=== PATIENT | female | born 1940 | race Caucasian/White ===

== ENCOUNTER 2017-07-24 15:59 | Emergency (ER) | payer MEDICARE ==
[~2017-07-24] VITALS: Ht 149.9 cm; Wt 66.4 kg
[2017-07-24] MEDS ORDERED: ONDANSETRON 2MG/ML, 2ML ONE (16:40)
[2017-07-24] MEDS ORDERED: MORPHINE SULFATE 4 MG/ML, 1ML ONE (16:40)
[2017-07-24] MEDS ORDERED: CEFAZOLIN PMX 1GM/50ML 50 ML ONE (16:47)
[2017-07-24 16:49] LABS: BASOPHILS # (AUTO) 0.04 x10^3/uL (0-0.1); BASOPHILS % (AUTO) 1 % (0-1); EOSINOPHILS # (AUTO) 0.08 x10^3/uL (0-0.4); EOSINOPHILS % (AUTO) 1 % (1-7); HCT (SEDRATE) 39.4 % (34.6-47.8); LYMPHOCYTES # (AUTO) 1.87 x10^3/uL (1-3.4); LYMPHOCYTES % (AUTO) 29 % (22-44); MD NO; MEAN CORPUSCULAR HEMOGLOBIN 23.7 pg (27.0-34.8); MEAN CORPUSCULAR HGB CONC 32.1 g/dL (32.4-35.8); MEAN CORPUSCULAR VOLUME 73.6 fL (80-100); MEAN PLATELET VOLUME 8.8 fL (7.4-10.4); MONOCYTES # (AUTO) 0.51 x10^3/uL (0.2-0.8); MONOCYTES % (AUTO) 8 % (2-9); NEUTROPHILS # (AUTO) 3.87 x10^3/uL (1.8-6.8); NEUTROPHILS % (AUTO) 61 % (42-75); PLATELET COUNT 310 x10^3/uL (130-400); RED BLOOD COUNT 5.36 x10^6/uL (3.82-5.3); RED CELL DISTRIBUTION WIDTH 16.8 % (9.6-15.2)
[2017-07-24 17:00] LABS: ALBUMIN 3.7 g/dL (3.4-5.0); ANION GAP 8 mmol/L (5-15); C-REACTIVE PROTEIN, QUANT 0.15 mg/dL (0.02-0.49); CALCIUM 8.3 mg/dL (8.5-10.1); CHLORIDE 109 mmol/L (98-107); CREATININE 0.64 mg/dL (0.55-1.02)
[2017-07-24] MEDS ORDERED: SODIUM CHLORIDE FLUSH 10ML SYR IVF ONE (17:00)
[2017-07-24] MEDS ORDERED: MORPHINE SULFATE 4 MG/ML, 1ML IVPush PRN (17:00)
[2017-07-24] MEDS ORDERED: CEFAZOLIN PMX 1GM/50ML 50 ML IV ONE (17:00)
[2017-07-24] MEDS ORDERED: ONDANSETRON 2MG/ML, 2ML IVPush ONE (17:00)
[2017-07-24] MEDS ORDERED: PLEASE ENTER ALLERGIES MC SCH (17:00)
[2017-07-24 17:30] LABS: SEDIMENTATION RATE 19 mm/hr (0-20)
[2017-07-24 18:20] VITALS: BP 140/67
== END 2017-07-24 19:02 | disposition home or self-care (01) ==
LOC: ED 18:50
DX: L98.491 Non-pressure chronic ulcer of skin of other sites limited to breakdown of skin (principal); L98.492 Non-pressure chronic ulcer of skin of other sites with fat layer exposed
CPT/HCPCS: 36415; 73130; 80048; 82040; 85025; 85651; 86140; 96365; 96375; 99285; J0690; J2405

== ENCOUNTER → 2017-08-02 | Outpatient (CLI) | payer MEDICAID, MEDICARE | END | disposition home or self-care (01) | LOC: WOUND 13:27 | PROVIDERS: ATTEND Internal Medicine | DX: S61.401A Unspecified open wound of right hand, initial encounter (principal); X58.XXXA Exposure to other specified factors, initial encounter; Y93.89 Activity, other specified; Y92.89 Other specified places as the place of occurrence of the external cause; Y99.8 Other external cause status | CPT/HCPCS: 97597; G0463; WOU0463 ==

== ENCOUNTER → 2017-08-09 | Outpatient (CLI) | payer MEDICARE | END | disposition home or self-care (01) | LOC: WOUND 11:00 | PROVIDERS: ATTEND Internal Medicine | DX: S61.401D Unspecified open wound of right hand, subsequent encounter (principal); X58.XXXD Exposure to other specified factors, subsequent encounter | CPT/HCPCS: 97597 ==

== ENCOUNTER → 2017-08-16 | Outpatient (CLI) | payer MEDICARE | END | disposition home or self-care (01) | LOC: WOUND 11:12 | PROVIDERS: ATTEND Internal Medicine | DX: S61.401D Unspecified open wound of right hand, subsequent encounter (principal); X58.XXXD Exposure to other specified factors, subsequent encounter | CPT/HCPCS: 11100 ==

== ENCOUNTER → 2017-08-23 | Outpatient (CLI) | payer MEDICARE | END | disposition home or self-care (01) | LOC: WOUND 11:30 | PROVIDERS: ATTEND Internal Medicine | DX: S61.401D Unspecified open wound of right hand, subsequent encounter (principal); X58.XXXD Exposure to other specified factors, subsequent encounter | CPT/HCPCS: G0463; WOU0463 ==

== ENCOUNTER 2019-03-07 11:02 | Inpatient (IN) | payer MEDICARE ==
[~2019-03-07] VITALS: Ht 152.4 cm; Wt 60.6 kg
--- NOTE | 2019-03-07 11:38 | NUR ---
PT TO ED WITH FAMILY MEMBER FOR OPEN ABSCESS ON PALMAR RIGHT HAND/WRIST WITH FEVER UP TO 102F LAST NIGHT. PT HAS BEEN TAKIN GADVIL FOR PAIN AND FEVER. PT HAS HX OF CANCER AND SURGICAL REMOVAL OF 3 FINGERS. PT STATES WOUND HAS BEEN OPEN FOR 6MONTHS, SINCE LAST SURGERY. PT CONNECTED TO MONITORS. VSS. PT RESTING IN ROOM WITH FAMILY AT BS. NO NEEDS EXPRESSED. CALL LIGHT WITHIN REACH. AWAITING EDMD ASSESSMENT.
[2019-03-07] MEDS ORDERED: MORPHINE SULFATE 4 MG/ML, 1ML IVPush PRN ×2 (12:00→15:30)
[2019-03-07] MEDS ORDERED: ONDANSETRON 2MG/ML, 2ML IVPush ONE (12:00)
[2019-03-07] MEDS ORDERED: SODIUM CHLORIDE FLUSH 10ML SYR IVF ONE (12:00)
[2019-03-07] MEDS ORDERED: MORPHINE SULFATE 4 MG/ML, 1ML ONE (12:12)
[2019-03-07] MEDS ORDERED: ONDANSETRON 2MG/ML, 2ML ONE (12:12)
--- NOTE | 2019-03-07 12:23 | NUR ---
pt resting in room. vss. iv established and labs drawn. pt medicated per sep. xr complete. awaiting resutls.
[2019-03-07 12:30] LABS: ALBUMIN 3.5 g/dL (3.4-5.0); ANION GAP 9 mmol/L (5-15); CALCIUM 8.7 mg/dL (8.5-10.1); CHLORIDE 111 mmol/L (98-107)
[2019-03-07 12:31] LABS: CREATININE 0.88 mg/dL (0.55-1.02)
[2019-03-07 12:34] LABS: MEAN CORPUSCULAR HGB CONC 30.4 g/dL (32.4-35.8); MEAN CORPUSCULAR VOLUME 59.2 fL (80-100); MEAN PLATELET VOLUME 7.9 fL (7.4-10.4); PLATELET COUNT 353 x10^3/uL (130-400)
[2019-03-07 12:45] LABS: MD YES
[2019-03-07 12:47] LABS: ANISOCYTOSIS 2+; EOS% (MANUAL) 4 % (1-7); LYMPH#(MANUAL) 0.71 x10^3/uL (1-3.4); LYMPHS% (MANUAL) 14 % (22-44); MICROCYTOSIS 2+; MONOS% (MANUAL) 4 % (2-9); SEG#(MANUAL) 3.98 x10^3/uL (1.8-6.8); SEGS% (MANUAL) 78 % (42-75)
[2019-03-07 12:48] LABS: HYPOCHROMIA 1+; TARGET CELLS 1+
[2019-03-07 12:49] LABS: <PLATELET ESTIMATE> ADEQUATE; <PLT MORPHOLOGY> NORMAL PLT MORPH; OVALOCYTES 1+; STOMATOCYTES 1+; TEAR DROPS 1+
[2019-03-07 13:40] LABS: HCT (SEDRATE) 29.6 % (34.6-47.8)
--- NOTE | 2019-03-07 13:54 | NUR ---
pt resting in room. vss. awaiting further orders.
[2019-03-07] MEDS ORDERED: CLINDAMYCIN PMX 300MG/50ML 50 ML IV ONE (14:30)
--- NOTE | 2019-03-07 14:59 | NUR ---
pt resting in room with lights dimmed adn family at bs. vss. pt medicated per sep. hospitalist to bs. awaiting room assignment.
[2019-03-07 15:18] LABS: C-REACTIVE PROTEIN, QUANT 0.13 mg/dL (0.02-0.49)
[2019-03-07] MEDS ORDERED: ONDANSETRON 2MG/ML, 2ML IVPush PRN (15:30)
--- NOTE | 2019-03-07 15:34 | NUR ---
Flo domínguez in [facility] - 03/07/19 at 1534 by DWIGHT BREAK RN: PT RESTING ON GURNEY. COL[place]
[2019-03-07] MEDS: SODIUM CHLORIDE 0.9% 1,000 ML IV SCH (17:52)
[2019-03-07] MEDS: ENOXAPARIN 40 MG/0.4 ML SQ SCH (17:52)
[2019-03-07] MEDS: OXYcodone IR 5MG TABLET PO PRN ×2 (17:53→21:55)
[2019-03-07] MEDS: METRONIDAZOLE PMX 500MG/100ML 100 ML IV SCH ×2 (18:28→23:56)
[2019-03-07 18:53] VITALS: BP 144/84
[2019-03-07] MEDS: CEFTAROLINE 600 MG in SODIUM CHLORIDE 0.9% 100 ML IV SCH (19:41)
[2019-03-08 00:13] VITALS: BP 160/79
[2019-03-08] MEDS: METRONIDAZOLE PMX 500MG/100ML 100 ML IV SCH ×4 (05:45→23:51)
[2019-03-08 06:09] LABS: ALBUMIN 2.9 g/dL (3.4-5.0); ANION GAP 9 mmol/L (5-15); CALCIUM 7.7 mg/dL (8.5-10.1); CHLORIDE 113 mmol/L (98-107)
[2019-03-08 06:20] LABS: ALANINE AMINOTRANSFERASE 19 U/L (12-78); ALKALINE PHOSPHATASE 103 U/L (45-117); BILIRUBIN,TOTAL 0.6 mg/dL (0.2-1.0); CREATININE 0.59 mg/dL (0.55-1.02); TOTAL PROTEIN 6.1 g/dL (6.4-8.2)
[2019-03-08 06:39] VITALS: BP 135/67
[2019-03-08 06:42] LABS: MEAN CORPUSCULAR HEMOGLOBIN 18.4 pg (27.0-34.8); MEAN CORPUSCULAR HGB CONC 30.7 g/dL (32.4-35.8); MEAN CORPUSCULAR VOLUME 59.9 fL (80-100); MEAN PLATELET VOLUME 8.4 fL (7.4-10.4); PLATELET COUNT 315 x10^3/uL (130-400); RED BLOOD COUNT 4.33 x10^6/uL (3.82-5.3); RED CELL DISTRIBUTION WIDTH 20.1 % (9.6-15.2)
[2019-03-08 07:30] LABS: BASOPHILS # (AUTO) 0.02 x10^3/uL (0-0.1); BASOPHILS % (AUTO) 1 % (0-1); EOSINOPHILS # (AUTO) 0.09 x10^3/uL (0-0.4); EOSINOPHILS % (AUTO) 2 % (1-7); LYMPHOCYTES # (AUTO) 1.14 x10^3/uL (1-3.4); LYMPHOCYTES % (AUTO) 30 % (22-44); MD SCAN; MONOCYTES # (AUTO) 0.27 x10^3/uL (0.2-0.8); MONOCYTES % (AUTO) 7 % (2-9); NEUTROPHILS # (AUTO) 2.27 x10^3/uL (1.8-6.8); NEUTROPHILS % (AUTO) 60 % (42-75)
[2019-03-08] MEDS: CEFTAROLINE 600 MG in SODIUM CHLORIDE 0.9% 100 ML IV SCH (07:41)
[2019-03-08] MEDS: OXYcodone IR 5MG TABLET PO PRN ×3 (09:08→18:11)
[2019-03-08] MEDS: IRON SUCROSE COMPLEX 100MG/5ML IV SCH (10:38)
[2019-03-08 12:27] VITALS: BP_SYST 131; BP_SYST 170; BP_DIAS 74; BP_DIAS 89
[2019-03-08] MEDS: SODIUM CHLORIDE 0.9% 1,000 ML IV SCH (14:18)
[2019-03-08] MEDS: ENOXAPARIN 40 MG/0.4 ML SQ SCH (18:11)
[2019-03-08 19:27] VITALS: BP 161/68
[2019-03-08] MEDS: CEFTAROLINE 400 MG in SODIUM CHLORIDE 0.9% 100 ML IV SCH (20:02)
[2019-03-09 00:58] VITALS: BP 167/90
[2019-03-09] MEDS: OXYcodone IR 5MG TABLET PO PRN ×2 (02:17→18:02)
[2019-03-09 05:48] LABS: MEAN CORPUSCULAR HEMOGLOBIN 18.3 pg (27.0-34.8); MEAN CORPUSCULAR HGB CONC 30.1 g/dL (32.4-35.8); MEAN CORPUSCULAR VOLUME 60.8 fL (80-100); MEAN PLATELET VOLUME 8.2 fL (7.4-10.4); PLATELET COUNT 305 x10^3/uL (130-400); RED BLOOD COUNT 4.24 x10^6/uL (3.82-5.3); RED CELL DISTRIBUTION WIDTH 20.1 % (9.6-15.2)
[2019-03-09 06:00] LABS: BASOPHILS # (AUTO) 0.02 x10^3/uL (0-0.1); BASOPHILS % (AUTO) 1 % (0-1); EOSINOPHILS # (AUTO) 0.06 x10^3/uL (0-0.4); EOSINOPHILS % (AUTO) 2 % (1-7); LYMPHOCYTES # (AUTO) 0.88 x10^3/uL (1-3.4); LYMPHOCYTES % (AUTO) 22 % (22-44); MD SCAN; MONOCYTES # (AUTO) 0.27 x10^3/uL (0.2-0.8); MONOCYTES % (AUTO) 7 % (2-9); NEUTROPHILS # (AUTO) 2.72 x10^3/uL (1.8-6.8); NEUTROPHILS % (AUTO) 69 % (42-75)
[2019-03-09] MEDS: METRONIDAZOLE PMX 500MG/100ML 100 ML IV SCH ×3 (06:09→18:02)
[2019-03-09 06:28] VITALS: BP 127/90
[2019-03-09 06:58] VITALS: BP 165/79
[2019-03-09] MEDS: CEFTAROLINE 400 MG in SODIUM CHLORIDE 0.9% 100 ML IV SCH ×2 (08:15→20:16)
[2019-03-09] MEDS: IRON SUCROSE COMPLEX 100MG/5ML IV SCH (08:15)
[2019-03-09] MEDS: SODIUM CHLORIDE 0.9% 1,000 ML IV SCH (10:04)
[2019-03-09] MEDS: ONDANSETRON ODT 4 MG PO PRN (12:00)
[2019-03-09 12:49] VITALS: BP 131/73
[2019-03-09 15:47] LABS: OCCULT BLOOD NEGATIVE (NEGATIVE)
[2019-03-09] MEDS ORDERED: MORPHINE SULFATE 4 MG/ML, 1ML IVPush ONE (16:00)
[2019-03-09] MEDS ORDERED: GADOBUTROL 10 MMOL/10 ML VIAL ONE (16:29)
[2019-03-09] MEDS: ACETAMINOPHEN 325 MG TABLET PO PRN (18:01)
[2019-03-09] MEDS: ENOXAPARIN 40 MG/0.4 ML SQ SCH (18:02)
[2019-03-09] MEDS: DOCUSATE 100 MG CAPSULE PO SCH (20:17)
[2019-03-09] MEDS: POLYETHYLENE GLYCOL 17 GM PACKET PO PRN (20:17)
[2019-03-09 20:18] VITALS: BP 151/73
[2019-03-10] MEDS: METRONIDAZOLE PMX 500MG/100ML 100 ML IV SCH ×2 (00:07→05:31)
[2019-03-10 01:23] VITALS: BP 149/64
[2019-03-10] MEDS: SODIUM CHLORIDE 0.9% 1,000 ML IV SCH ×2 (02:08→13:53)
[2019-03-10 06:34] VITALS: BP 155/78
[2019-03-10] MEDS: IRON SUCROSE COMPLEX 100MG/5ML IV SCH (08:00)
[2019-03-10] MEDS: ACETAMINOPHEN 325 MG TABLET PO PRN ×3 (08:02→20:18)
[2019-03-10] MEDS: CEFTAROLINE 400 MG in SODIUM CHLORIDE 0.9% 100 ML IV SCH ×2 (08:02→20:13)
[2019-03-10] MEDS: ENOXAPARIN 40 MG/0.4 ML SQ SCH (08:03)
[2019-03-10] MEDS: ONDANSETRON ODT 4 MG PO PRN (08:03)
[2019-03-10] MEDS: OXYcodone IR 5MG TABLET PO PRN ×3 (08:03→20:19)
[2019-03-10] MEDS: DOCUSATE 100 MG CAPSULE PO SCH ×2 (08:03→20:13)
[2019-03-10 12:49] VITALS: BP 172/78
[2019-03-10] MEDS ORDERED: GADOTERATE 7.5 MMOL/15 ML SYR ONE (16:52)
[2019-03-10 18:43] VITALS: BP 135/71
[2019-03-11 00:43] VITALS: BP 147/71
[2019-03-11] MEDS: SODIUM CHLORIDE 0.9% 1,000 ML IV SCH ×2 (02:37→15:50)
[2019-03-11 05:14] LABS: ANION GAP 5 mmol/L (5-15); CHLORIDE 110 mmol/L (98-107)
[2019-03-11 05:23] LABS: MEAN CORPUSCULAR HEMOGLOBIN 18.7 pg (27.0-34.8); MEAN CORPUSCULAR VOLUME 62.3 fL (80-100); MEAN PLATELET VOLUME 9.5 fL (7.4-10.4); PLATELET COUNT 351 x10^3/uL (130-400); RED BLOOD COUNT 4.26 x10^6/uL (3.82-5.3); RED CELL DISTRIBUTION WIDTH 21.4 % (9.6-15.2)
[2019-03-11 05:48] LABS: MD YES
[2019-03-11 05:51] LABS: ANISOCYTOSIS 2+; BAND#(MANUAL) 0.05 x10^3/uL; BANDS%(MANUAL) 1 % (0-7); HYPOCHROMIA 1+; LYMPH#(MANUAL) 1.28 x10^3/uL (1-3.4); LYMPHS% (MANUAL) 25 % (22-44); MICROCYTOSIS 2+; MONOS#(MANUAL) 0.36 x10^3/uL (0.3-2.7); MONOS% (MANUAL) 7 % (2-9); OVALOCYTES 1+; SEG#(MANUAL) 3.42 x10^3/uL (1.8-6.8); SEGS% (MANUAL) 67 % (42-75)
[2019-03-11 05:52] LABS: TEAR DROPS 1+
[2019-03-11 05:53] LABS: <PLATELET ESTIMATE> ADEQUATE; <PLT MORPHOLOGY> NORMAL PLT MORPH
[2019-03-11 06:50] VITALS: BP 172/81
[2019-03-11] MEDS: IRON SUCROSE COMPLEX 100MG/5ML IV SCH (07:54)
[2019-03-11] MEDS: DOCUSATE 100 MG CAPSULE PO SCH ×2 (07:54→20:09)
[2019-03-11] MEDS ORDERED: POTASSIUM CHLORIDE 20 MEQ TAB.ER.PRT PO ONE (08:00)
[2019-03-11] MEDS: CEFTRIAXONE PMX 2GM/50ML 50 ML IV SCH (08:24)
[2019-03-11] MEDS: OXYcodone IR 5MG TABLET PO PRN ×3 (10:30→23:28)
[2019-03-11 12:14] VITALS: BP 140/81
[2019-03-11] MEDS: ENOXAPARIN 40 MG/0.4 ML SQ SCH (15:50)
[2019-03-11 18:32] VITALS: BP 160/86
[2019-03-12 01:24] VITALS: BP 158/79
[2019-03-12 07:18] VITALS: BP 171/87
[2019-03-12 08:08] VITALS: BP 159/74
[2019-03-12] MEDS: DOCUSATE 100 MG CAPSULE PO SCH ×2 (08:12→21:29)
[2019-03-12] MEDS: CEFTRIAXONE PMX 2GM/50ML 50 ML IV SCH (08:12)
[2019-03-12] MEDS ORDERED: BACITRACIN 50,000 UNIT ONE (14:56)
[2019-03-12] MEDS ORDERED: NEOSPORIN OINT, 15GM ONE (14:56)
[2019-03-12] MEDS ORDERED: FENTANYL PF 100 MCG/2ML ONE (15:04)
[2019-03-12] MEDS ORDERED: MIDAZOLAM 1 MG/ML, 2ML ONE (15:05)
[2019-03-12] MEDS ORDERED: MEPERIDINE/PF 25MG/ML,1ML IVPush PRN (16:00)
[2019-03-12] MEDS ORDERED: HYDROmorphone 2 MG/ML, 1ML IVPush PRN (16:00)
[2019-03-12] MEDS ORDERED: hydrALAzine 20 MG/ML, 1ML IV PRN (16:00)
[2019-03-12] MEDS ORDERED: ONDANSETRON 2MG/ML, 2ML IV PRN (16:00)
[2019-03-12] MEDS ORDERED: OXYcodone 5 MG/5 ML ORAL.SOL UDC PO PRN (16:00)
[2019-03-12] MEDS ORDERED: HALOPERIDOL 5 MG/ML IV PRN (16:00)
[2019-03-12] MEDS ORDERED: ACETAMINOPHEN 325 MG TABLET PO PRN (16:00)
[2019-03-12] MEDS ORDERED: FENTANYL PF 100 MCG/2ML IV PRN (16:00)
[2019-03-12] MEDS ORDERED: LIDOCAINE-MPF 2% ,5ML ONE (16:03)
[2019-03-12] MEDS ORDERED: DEXAMETHASONE 4 MG/ML, 1ML ONE (16:03)
[2019-03-12] MEDS ORDERED: CEFAZOLIN 1,000 MG ONE (16:03)
[2019-03-12] MEDS ORDERED: ONDANSETRON 2MG/ML, 2ML ONE (16:03)
[2019-03-12] MEDS ORDERED: PROPOFOL 10 MG/ML, 20ML ONE (16:03)
[2019-03-12] MEDS ORDERED: WATER-INJECTION,STERILE 10 ML IV ONE (16:03)
[2019-03-12] MEDS ORDERED: CEFAZOLIN PMX 1GM/50ML 50 ML IV SCH (18:30)
[2019-03-12 20:03] VITALS: BP 146/88
[2019-03-12] MEDS: SODIUM CHLORIDE 0.9% 1,000 ML IV SCH (23:27)
[2019-03-12] MEDS: CEFAZOLIN PMX 1GM/50ML 50 ML IV SCH (23:28)
[2019-03-13] VITALS: BP 138/79
[2019-03-13 03:46] VITALS: BP 145/82
[2019-03-13 05:27] LABS: MEAN CORPUSCULAR HEMOGLOBIN 19.4 pg (27.0-34.8); MEAN CORPUSCULAR HGB CONC 30.8 g/dL (32.4-35.8); MEAN CORPUSCULAR VOLUME 63.2 fL (80-100); MEAN PLATELET VOLUME 8.8 fL (7.4-10.4); PLATELET COUNT 293 x10^3/uL (130-400); RED BLOOD COUNT 4.65 x10^6/uL (3.82-5.3); RED CELL DISTRIBUTION WIDTH 20.6 % (9.6-15.2)
[2019-03-13 05:36] LABS: ANION GAP 8 mmol/L (5-15); CALCIUM 8.4 mg/dL (8.5-10.1); CHLORIDE 113 mmol/L (98-107); CREATININE 0.53 mg/dL (0.55-1.02)
[2019-03-13 06:08] LABS: BASOPHILS % (AUTO) 0 % (0-1); EOSINOPHILS # (AUTO) 0.08 x10^3/uL (0-0.4); EOSINOPHILS % (AUTO) 2 % (1-7); LYMPHOCYTES # (AUTO) 0.63 x10^3/uL (1-3.4); LYMPHOCYTES % (AUTO) 11 % (22-44); MD MORPH REVIEW ONLY; MONOCYTES % (AUTO) 3 % (2-9); NEUTROPHILS # (AUTO) 4.92 x10^3/uL (1.8-6.8); NEUTROPHILS % (AUTO) 84 % (42-75)
[2019-03-13 06:09] LABS: ANISOCYTOSIS 2+; HYPOCHROMIA 2+; MICROCYTOSIS 2+; OVALOCYTES 1+
[2019-03-13] MEDS: ENOXAPARIN 40 MG/0.4 ML SQ SCH (06:09)
[2019-03-13 06:10] LABS: POLYCHROMASIA 1+
[2019-03-13 06:11] LABS: <PLATELET ESTIMATE> ADEQUATE; <PLT MORPHOLOGY> NORMAL PLT MORPH
[2019-03-13 06:59] VITALS: BP 133/72
[2019-03-13] MEDS ORDERED: POTASSIUM CHLORIDE 20 MEQ TAB.ER.PRT PO ONE (08:00)
[2019-03-13] MEDS: CEFAZOLIN PMX 1GM/50ML 50 ML IV SCH (08:11)
[2019-03-13] MEDS: DOCUSATE 100 MG CAPSULE PO SCH ×2 (08:11→20:29)
[2019-03-13] MEDS: CEFTRIAXONE PMX 2GM/50ML 50 ML IV SCH (09:19)
[2019-03-13 14:10] VITALS: BP 117/66
[2019-03-13] MEDS ORDERED: FERROUS GLUCONATE 324 MG TABLET PO SCH (17:00)
[2019-03-13 19:38] VITALS: BP 135/64
[2019-03-14 01:17] VITALS: BP 139/64
[2019-03-14] MEDS: ENOXAPARIN 40 MG/0.4 ML SQ SCH (05:45)
[2019-03-14 07:46] VITALS: BP 141/60
[2019-03-14] MEDS: POLYETHYLENE GLYCOL 17 GM PACKET PO PRN (08:23)
[2019-03-14] MEDS: DOCUSATE 100 MG CAPSULE PO SCH (08:24)
[2019-03-14] MEDS ORDERED: FERROUS GLUCONATE 324 MG TABLET PO SCH (08:30)
[2019-03-14] MEDS ORDERED: OXYcodone IR 5MG TABLET PO PRN (08:30)
[2019-03-14] MEDS ORDERED: ACETAMINOPHEN 325 MG TABLET PO PRN (08:30)
[2019-03-14] MEDS ORDERED: POTASSIUM CHLORIDE 20 MEQ TAB.ER.PRT PO ONE (08:30)
[2019-03-14] MEDS ORDERED: CALCIUM/VITAMIN D3 250-125 TABLET PO SCH (09:00)
[2019-03-14] MEDS ORDERED: FERR325T16 PO (13:23)
[2019-03-14] MEDS ORDERED: ACET325T26 PO (13:23)
[2019-03-14] MEDS ORDERED: CALC1TAB68 PO (13:23)
[2019-03-14] MEDS ORDERED: ALEN10TA7 PO (13:23)
[2019-03-14 13:28] VITALS: BP 134/64
[2019-03-15] MEDS ORDERED: ALENDRONATE 10 MG TABLET PO SCH (06:30)
== END 2019-03-14 16:05 | disposition home or self-care (01) | DRG 829 ==
LOC: ED 14:27 → EDIP 15:14 → 4NE 17:08 → DCLOUNGE 03-14 16:00
PROVIDERS: ADMIT Internal Medicine; ATTEND Internal Medicine
PROC: 3E0T3BZ Introduction of Anesthetic Agent into Peripheral Nerves and Plexi, Percutaneous Approach (ICD-10-PCS; 2019-03-12)
PROC: 0XBB0ZX Excision of Right Elbow Region, Open Approach, Diagnostic (ICD-10-PCS; 2019-03-12)
PROC: 0X6 Anatomical Regions, Upper Extremities, Detachment (ICD-10-PCS; principal; 2019-03-12 13:00)
DX: C76.41 Malignant neoplasm of right upper limb (principal); T81.31XA Disruption of external operation (surgical) wound, not elsewhere classified, initial encounter; L03.113 Cellulitis of right upper limb; M80.88XA Other osteoporosis with current pathological fracture, vertebra(e), initial encounter for fracture; C77.3 Secondary and unspecified malignant neoplasm of axilla and upper limb lymph nodes; D50.9 Iron deficiency anemia, unspecified; E87.6 Hypokalemia; K44.9 Diaphragmatic hernia without obstruction or gangrene; Z88.0 Allergy status to penicillin; K31.89 Other diseases of stomach and duodenum
CPT/HCPCS: 36415; 70553; 71260; 74177; 80048; 80053; 82040; 82272; 82728; 83540; 83550; 84443; 84466; 85025; 85651; 86140; 87040; 87070; 87077; 87186; 87205; 88305; 88307; 88311; 93005; 96374; 96375; A9585; G0378; J0690; J0696; J0712; J1100; J1650; J1756; J2250; J2405; J2704; J3010; Q0162; A9575; J2270; J7030

== ENCOUNTER → 2019-06-20 | Outpatient (CLI) | payer MEDICARE, MEDICAID ==
[~2019-06-20] MED LIST: ACET325T26 PO; ALEN10TA7 PO; CALC1TAB68 PO; FERR325T16 PO
== END | disposition home or self-care (01) ==
LOC: PETCFH 13:28
PROVIDERS: ATTEND Internal Medicine
DX: C77.3 Secondary and unspecified malignant neoplasm of axilla and upper limb lymph nodes (principal); C44.622 Squamous cell carcinoma of skin of right upper limb, including shoulder; M48.54XA Collapsed vertebra, not elsewhere classified, thoracic region, initial encounter for fracture; M47.816 Spondylosis without myelopathy or radiculopathy, lumbar region; M95.5 Acquired deformity of pelvis; F12.90 Cannabis use, unspecified, uncomplicated
CPT/HCPCS: 78815; A9552

== ENCOUNTER 2019-06-28 16:00 | Emergency (ER) | payer MEDICARE, MEDICAID ==
[~2019-06-28] VITALS: Ht 149.9 cm; Wt 60.0 kg
--- NOTE | 2019-06-28 17:47 | NUR ---
BREAK RN FOR PRIMARY RN MURALI. 78 Y/O F PRESENTS WITH RIGHT ARM BIOPSY SITE REDNESS/DISCHARGE AT RIGHT AC. PER PT AND FAMILY "THEY DID A BIOPSY AND NOW IT'S INFECTED, THEY THINK THE CANCER HAS SPREAD, WHOLE ARM IS RED AND THE BIOPSY IS OOZING." DENIES ANY PAIN, CP, SOB. CONT PULSE OX, BP MONITORS APPLIED. VSS. CALL LIGHT IN REACH. FALL PRECAUTIONS IN PLACE. FAMILY AT BEDSIDE. DR. ERNST AT BEDSIDE FOR EVALUATION, AWAITING ORDERS.
[2019-06-28 18:12] LABS: ALBUMIN 3.7 g/dL (3.4-5.0); ANION GAP 8 mmol/L (5-15); CALCIUM 8.8 mg/dL (8.5-10.1); CHLORIDE 113 mmol/L (98-107); CREATININE 0.71 mg/dL (0.55-1.02)
--- NOTE | 2019-06-28 18:14 | NUR ---
REPORT AND CARE BACK TO PRIMARY NELLY CARRION.
[2019-06-28] MEDS ORDERED: OMNIPAQUE 350 MG/ML, 75ML BOTTLE ONE (18:39)
[2019-06-28] MEDS ORDERED: SODIUM CHLORIDE FLUSH 10ML SYR IVF ONE (19:00)
--- NOTE | 2019-06-28 19:03 | NUR ---
REPORT TAKEN FROM PHI VILLEGAS. PT IS RESTING IN BED. NO REQUESTS AT THIS TIME.
[2019-06-28 19:33] LABS: MD YES; MEAN CORPUSCULAR HEMOGLOBIN 20.7 pg (27.0-34.8); MEAN CORPUSCULAR HGB CONC 30.9 g/dL (32.4-35.8); MEAN CORPUSCULAR VOLUME 66.9 fL (80-100); MEAN PLATELET VOLUME 8.2 fL (7.4-10.4); PLATELET COUNT 266 x10^3/uL (130-400); RED CELL DISTRIBUTION WIDTH 19.9 % (9.6-15.2)
[2019-06-28 20:08] LABS: BAND#(MANUAL) 0.05 x10^3/uL; BANDS%(MANUAL) 1 % (0-7); BASOS% (MANUAL) 2 % (0-1); LYMPHS% (MANUAL) 25 % (22-44); MONOS#(MANUAL) 0.19 x10^3/uL (0.3-2.7); MONOS% (MANUAL) 4 % (2-9); SEG#(MANUAL) 3.26 x10^3/uL (1.8-6.8); SEGS% (MANUAL) 68 % (42-75)
[2019-06-28 20:09] LABS: ANISOCYTOSIS 2+; MICROCYTOSIS 2+
[2019-06-28 20:10] LABS: <PLATELET ESTIMATE> ADEQUATE; <PLT MORPHOLOGY> NORMAL PLT MORPH; OVALOCYTES 1+; POLYCHROMASIA 1+
--- NOTE | 2019-06-28 20:41 | NUR ---
PT IS RESTING IN HOSPITAL BED. DAUGHTER BEDSIDE. WARM BLANKET PROVIDED. NO REQUESTS AT THIS TIME
[2019-06-28] MEDS ORDERED: CEFTRIAXONE PMX 1GM/50ML 50 ML ONE (21:35)
--- NOTE | 2019-06-28 21:41 | NUR ---
Per Dr. Razo, blood cultures x2 not need prior to antibiotics.
[2019-06-28] MEDS ORDERED: CEFTRIAXONE PMX 1GM/50ML 50 ML IVPB ONE (22:00)
[2019-06-28 22:02] VITALS: BP 155/83
== END 2019-06-28 22:04 | disposition home or self-care (01) ==
LOC: ED 19:47
DX: R22.31 Localized swelling, mass and lump, right upper limb (principal)
CPT/HCPCS: 36415; 71260; 76882; 80048; 82040; 85025; 96365; 99284; J0696; Q9967

== ENCOUNTER 2019-09-02 11:28 | Emergency (ER) | payer MEDICARE, MEDICAID ==
[~2019-09-02] VITALS: Ht 129.5 cm; Wt 57.0 kg
[~2019-09-02 11:28] MED LIST changes: +ALEN10TA10 PO; -ALEN10TA7 PO
--- NOTE | 2019-09-02 12:03 | NUR ---
PT TO ROOM FROM LOBBY AT THIS TIME.
--- NOTE | 2019-09-02 12:18 | NUR ---
78 Y/O FEMALE PRESENTS TO ED WITH C/O WOUND ON RIGHT STUMP. PER FAMILY, PT HAS A WOUND ON HER RIGHT SIDE. IT WAS BLEEDING, NOT ACTIVELY BLEEDING NOW. THERE HAS BEEN ISSUES OF INFECTION THAT THE PATIENT IS BEING FOLLOWED CLOSELY WITH BY DR. QUIROZ. BECKY. PT PLACED ON CONT PULSE OX,NIBP. NO C/O N/V/D, TRAUMA, SYNCOPE, CP, SOB.
[2019-09-02 12:25] LABS: ALBUMIN 3.8 g/dL (3.4-5.0); ANION GAP 7 mmol/L (5-15); CALCIUM 8.9 mg/dL (8.5-10.1); CHLORIDE 108 mmol/L (98-107); CREATININE 1.27 mg/dL (0.55-1.02)
[2019-09-02] MEDS ORDERED: SODIUM CHLORIDE FLUSH 10ML SYR IVF ONE (12:30)
[2019-09-02 12:33] LABS: MEAN CORPUSCULAR HEMOGLOBIN 21.1 pg (27.0-34.8); MEAN CORPUSCULAR HGB CONC 31.4 g/dL (32.4-35.8); MEAN CORPUSCULAR VOLUME 67.1 fL (80-100); PLATELET COUNT 379 x10^3/uL (130-400); RED BLOOD COUNT 4.82 x10^6/uL (3.82-5.3); RED CELL DISTRIBUTION WIDTH 22.1 % (9.6-15.2)
[2019-09-02 12:37] LABS: ALANINE AMINOTRANSFERASE 14 U/L (12-78)
[2019-09-02 12:38] LABS: MD MORPH REVIEW ONLY
[2019-09-02 12:39] LABS: ALKALINE PHOSPHATASE 94 U/L (45-117); BASOPHILS # (AUTO) 0.35 x10^3/uL (0-0.1); BASOPHILS % (AUTO) 6 % (0-1); BILIRUBIN,TOTAL 0.3 mg/dL (0.2-1.0); EOSINOPHILS # (AUTO) 0.05 x10^3/uL (0-0.4); EOSINOPHILS % (AUTO) 1 % (1-7); LYMPHOCYTES # (AUTO) 1.03 x10^3/uL (1-3.4); LYMPHOCYTES % (AUTO) 18 % (22-44); MONOCYTES % (AUTO) 5 % (2-9); NEUTROPHILS # (AUTO) 4.15 x10^3/uL (1.8-6.8); NEUTROPHILS % (AUTO) 71 % (42-75); TOTAL PROTEIN 7.8 g/dL (6.4-8.2)
[2019-09-02 12:40] LABS: ANISOCYTOSIS 2+; HYPOCHROMIA 2+; OVALOCYTES 2+
[2019-09-02 12:41] LABS: <PLATELET ESTIMATE> ADEQUATE; <PLT MORPHOLOGY> NORMAL PLT MORPH
--- NOTE | 2019-09-02 13:38 | NUR ---
PT RESTING ON JASMIN. BECKY. FAMILY BEDSIDE. VSS.
--- NOTE | 2019-09-02 14:34 | NUR ---
LUNCH BREAK NOTE: CHART UP FOR MD DELGADO. DR. OQUENDO AT BEDSIDE.
[2019-09-02 15:00] VITALS: BP 146/72
--- NOTE | 2019-09-02 15:10 | NUR ---
PT GETTING DRESSED. PT AND FAMILY VERBALIZE UNDERSTANDING REGARDING POC. NADN. VSS.
--- NOTE | 2019-09-02 15:20 | NUR ---
Patient/Caregiver given discharge instructions and they have confirmed that they understand the instructions. Patient ambulatory with steady gait. PT LEFT WITH ALL PERSONAL BELONGINGS. PT WITH FAMILY.
== END 2019-09-02 15:23 | disposition home or self-care (01) ==
LOC: ED 12:41
DX: E86.0 Dehydration (principal); N28.9 Disorder of kidney and ureter, unspecified; D50.0 Iron deficiency anemia secondary to blood loss (chronic); C44.92 Squamous cell carcinoma of skin, unspecified; M79.601 Pain in right arm; Z51.11 Encounter for antineoplastic chemotherapy
CPT/HCPCS: 36415; 71045; 76604; 80053; 83605; 85025; 99285